=== PATIENT | female | born 1970 | race Two or more races ===

== ENCOUNTER 2023-02-20 10:49 | Outpatient (CLI) | payer OTHER | END 2023-02-20 10:56 | disposition home or self-care (01) | LOC: SONOGRAMA 10:49 | PROVIDERS: ATTEND Pathology Anatomic Pathology | DX: D34 Benign neoplasm of thyroid gland (principal); E04.9 Nontoxic goiter, unspecified; E04.1 Nontoxic single thyroid nodule ==